=== PATIENT | female | born 1935 | race Caucasian/White ===

== ENCOUNTER 2017-01-23 07:54 | Day surgery (SDC) | payer OTHER ==
[2017-01-15 10:13] VITALS: BP 136/79
[~2017-01-23] VITALS: Ht 165.1 cm; Wt 56.0 kg
[~2017-01-23 07:54] MED LIST: ACET-1600 PO; AMLO2.5T PO; ARGI500T2 PO; ASCO500T6 PO; CALC-126 PO; CALC-545 PO; CARB1DRO8 EACHEYE; CETI10TA18 PO; CHOL10003 PO; IBUP200C PO; LACT1CAP37 PO; LATA2.5D3 EACHEYE; LEVO125T5 PO; LOSA100T6 PO; LYSI600T PO; MAGNESIUM PO; MV-M1TAB35 PO; OMEG-14 PO; PANT20TA3 PO; TIMO5DRO5 EACHEYE; VIT1CAPS42 PO; [UNRECOGNIZED DRUG - CODE] PO
[2017-01-23] MEDS ORDERED: LACTATED RINGERS 1,000 ML IV SCH (08:19)
[2017-01-23 08:26] VITALS: BP 136/79
[2017-01-23] MEDS ORDERED: LIDOCAINE 1%, 2ML SQ PRN (08:30)
[2017-01-23] MEDS ORDERED: SUCCINYLCHOLINE 20 MG/ML, 10ML ONE (09:44)
[2017-01-23] MEDS ORDERED: PROPOFOL 10 MG/ML, 20ML ONE (09:44)
[2017-01-23] MEDS ORDERED: ACETYLCYSTEINE 20%, 4ML ONE (09:59)
[2017-01-23] MEDS ORDERED: METOPROLOL 1 MG/ML, 5ML ONE (10:42)
[2017-01-23] MEDS ORDERED: ONDANSETRON 2MG/ML, 2ML IVPush PRN (11:00)
[2017-01-23] MEDS ORDERED: METOPROLOL 1 MG/ML, 5ML IV PRN (11:00)
[2017-01-23] MEDS ORDERED: ALBUTEROL SULFATE 2.5 MG/3 ML NPPB PRN (11:00)
[2017-01-23] MEDS ORDERED: ACETAMINOPHEN 325 MG TABLET PO PRN (11:00)
[2017-01-23] MEDS ORDERED: hydrALAzine 20 MG/ML, 1ML IV PRN (11:00)
== END 2017-01-23 12:45 | disposition home or self-care (01) ==
LOC: OUT 07:54
PROVIDERS: ATTEND Internal Medicine Gastroenterology
DX: K22.710 Barrett's esophagus with low grade dysplasia (principal); K44.9 Diaphragmatic hernia without obstruction or gangrene; I10 Essential (primary) hypertension; E03.9 Hypothyroidism, unspecified; H40.9 Unspecified glaucoma
CPT/HCPCS: 43229; J0330; J2704; J3010; J3490; J7120; J7608